=== PATIENT | female | born 1955 | race Caucasian/White ===

== ENCOUNTER 2022-01-15 14:34 | Day surgery (SDC) | payer MEDICARE ==
[~2022-01-15] VITALS: Ht 165.1 cm; Wt 55.3 kg
[2022-01-15 14:45] VITALS: BP 139/75
[2022-01-15] MEDS ORDERED: SENN-263 PO (14:50)
[2022-01-15] MEDS ORDERED: OXYC10TA47 PO (14:51)
[2022-01-15] MEDS ORDERED: PANT40TA54 PO (14:52)
[2022-01-15] MEDS ORDERED: ONDA8TAB13 PO (14:53)
[2022-01-15] MEDS ORDERED: TRAM50TA2 PO (14:53)
[2022-01-15] MEDS ORDERED: fentaNYL/PF 50MCG/1 ML 2ML syringe ONE ×2 (15:07→16:04)
[2022-01-15] MEDS ORDERED: LIDOcaine Viscous 15ml cup ONE (15:08)
[2022-01-15] MEDS ORDERED: ondansetron/PF 4mg/2ml inj ONE (15:08)
[2022-01-15] MEDS ORDERED: MIDAZolam 1 MG/ML 5ML VIAL ONE (15:08)
[2022-01-15] MEDS ORDERED: ceFAZolin/D5W- 1GM premix 50 ML IV ONE (15:11)
[2022-01-15 16:15] VITALS: BP 138/85
[2022-01-15 16:25] VITALS: BP 139/78
[2022-01-15] MEDS ORDERED: pantoprazole 40MG/NS 100ML BAG 100 ML IV ONE ×2 (16:25)
[2022-01-15] MEDS ORDERED: neomycin sulfate/bacitracin zinc/polymixin B UD packet TP ONE (16:30)
[2022-01-15 16:35] VITALS: BP 126/67
[2022-01-15 16:45] VITALS: BP 134/69
[2022-01-15 16:55] VITALS: BP 122/70
== END 2022-01-15 17:15 | disposition home or self-care (01) ==
LOC: GI LAB 14:34
PROVIDERS: ATTEND Internal Medicine Gastroenterology
DX: K31.5 Obstruction of duodenum (principal); Z93.1 Gastrostomy status
CPT/HCPCS: 43245; 43246; 99153; B4087; C9113; G0500; J0690; J2250; J2405; J3010; J7030; Z7512; 99152; A4620